=== PATIENT | female | born 1980 | race Caucasian/White ===

== ENCOUNTER 2016-06-10 09:07 | Emergency (ER) | payer BC ==
[2016-06-10 09:28] VITALS: BP 106/76
--- NOTE | 2016-06-10 09:33 | UC ---
Throat Pain/Nasal Miquel HPI - HPI Summary HPI Summary: SINUS PAIN AND PRESSURE X 3 DAYS + NASAL CONGESTION, PND X 7 DAYS - History of Current Complaint Chief Complaint: UCRespiratory Stated Complaint: SINUS COMPLAINT Time Seen by Provider: 06/10/16 09:18 Hx Obtained From: Patient Hx Last Menstrual Period: 05/31/16 Onset/Duration: Gradual Onset, Lasting Days - 3, Still Present Severity: Moderate Cough: Nonproductive Associated Signs & Symptoms: Positive: Sinus Discomfort, Nasal Discharge. Negative: Dysphagia, Drooling, Fever, Rash - Allergies/Home Medications Allergies/Adverse Reactions: Allergies Allergy/AdvReac Type Severity Reaction Status Date / Time Gluten Meal Allergy Intermediate GI UPSET. Verified 06/10/16 09:12 FLU SYMPTOMS ? Latex Allergy yeast Uncoded 12/23/15 08:30 infection, itching seasonal allergy Allergy Eyes Uncoded 12/23/15 08:30 Itchy/Swollen/Red/Watery Home Medications: Home Medications Doxylamine-Dm [Nite Time Cough] 1 liq PO BEDTIME PRN 06/10/16 [History Confirmed 06/10/16] PMH/Surg Hx/FS Hx/Imm Hx Endocrine History Of: Denies: Diabetes Cardiovascular History Of: Reports: Cardiac Disorders - mitrovalve prolapse with regurgitation Denies: Hypertension, Pacemaker/ICD GI/ History Of: Denies: Renal Disease - Surgical History Surgical History: Yes Surgery Procedure, Year, and Place: wisdom teeth extraction with cyst removal. bunionectomy right foot. vein stripping bilat. TONSIILECTOMY - Family History Known Family History: Positive: Cardiac Disease - Social History Alcohol Use: None Substance Use Type: None Smoking Status (MU): Never Smoked Tobacco Have You Smoked in the Last Year: No - Immunization History Most Recent Influenza Vaccination: NOT IN Review of Systems Constitutional: Negative Skin: Negative Eyes: Negative ENT: Sore Throat, Nasal Discharge Respiratory: Cough Cardiovascular: Negative Gastrointestinal: Negative Genitourinary: Negative All Other Systems Reviewed And Are Negative: Yes Physical Exam Triage Information Reviewed: Yes Appearance: Well-Appearing, No Pain Distress, Well-Nourished Vital Signs: Initial Vital Signs Temp 98.9 F 06/10/16 09:14 Pulse 94 06/10/16 09:14 Resp 24 06/10/16 09:14 BP 106/76 06/10/16 09:14 Pulse Ox 98 06/10/16 09:14 Vital Signs Reviewed: Yes Eye Exam: Normal Eyes: Positive: Conjunctiva Clear ENT: Positive: Normal ENT inspection, Hearing grossly normal, Pharynx normal, Nasal congestion, Nasal drainage, TMs normal Neck exam: Normal Neck: Positive: Supple, Nontender, No Lymphadenopathy Respiratory Exam: Normal Respiratory: Positive: Chest non-tender, Lungs clear, Normal breath sounds Cardiovascular: Positive: RRR, No Murmur, Pulses Normal Neurological: Positive: Alert Skin Exam: Normal Throat Pain/Nasal Course/Dx - Differential Dx/Diagnosis Provider Diagnoses: SINUSITIS Discharge - Discharge Plan Condition: Stable Disposition: HOME Prescriptions: Amoxicillin/Clavulanate TAB* [Augmentin TAB 875*] 875 mg PO BID #20 tab Mometasone NASAL (NF) [Nasonex (NF)] 1 spray BOTH NARES DAILY #1 nasal.spr Patient Education Materials: Sinusitis (ED) Referrals: Angela Mclaughlin MD [Primary Care Provider] - If Needed
== END 2016-06-10 09:45 | disposition home or self-care (01) ==
LOC: UCCORT 09:07
DX: J32.9 Chronic sinusitis, unspecified (principal)
CPT/HCPCS: 99212; G0463

== ENCOUNTER 2017-10-26 17:24 | Emergency (ER) | payer BC ==
[2017-10-26 19:12] VITALS: BP 117/65
--- NOTE | 2017-10-26 19:40 | UC ---
Neck Pain HPI - HPI Summary HPI Summary: Pt c/o sudden onset neck and upper back pain and stiffness that began after stretching upon waking in the morning yesterday morning. - History of Current Complaint Chief Complaint: UCUpperExtremity Stated Complaint: BACK AND NECK PAIN Time Seen by Provider: 10/26/17 19:32 Hx Obtained From: Patient Hx Last Menstrual Period: 10/14/17 ?: No Onset/Duration Of Injury/Symptoms: Hours Mechanism Of Injury: No Known Trauma Timing: Constant Onset/Duration: Sudden Onset, Still Present Severity: Moderate Pain Intensity: 2 Character: Dull, Aching, Stiff Aggravating Factors: Position, Movement Alleviating Factors: Nothing Associated Signs & Symptoms: Positive: Negative - Risk Factors Meningitis Risk Factors: Negative - Allergies/Home Medications Allergies/Adverse Reactions: Allergies Allergy/AdvReac Type Severity Reaction Status Date / Time gluten Allergy GI Upset Verified 10/26/17 19:00 tomato Allergy Rash Verified 10/26/17 19:00 ? Latex Allergy yeast Uncoded 10/26/17 19:00 infection, itching dairy Allergy GI Upset Uncoded 10/26/17 19:00 seasonal allergy Allergy Eyes Uncoded 10/26/17 19:00 Itchy/Swollen/Red/Watery Home Medications: Home Medications Berberine 1 udc PO BID 10/26/17 [History] Black Mongolian Radish 1 tab PO BID 10/26/17 [History] Digest Ds 1 tab PO SEE INSTRUCTIONS 10/26/17 [History] Parotid 1 tab PO BID 10/26/17 [History] PMH/Surg Hx/FS Hx/Imm Hx Previously Healthy: Yes - Surgical History Surgical History: Yes Surgery Procedure, Year, and Place: wisdom teeth extraction with cyst removal. bunionectomy right foot. vein stripping bilat. TONSILECTOMY - Family History Known Family History: Positive: Cardiac Disease - Social History Occupation: Employed Full-time Lives: With Family Alcohol Use: None Substance Use Type: None Smoking Status (MU): Never Smoked Tobacco Have You Smoked in the Last Year: No - Immunization History Most Recent Influenza Vaccination: NOT IN Review Of Systems Constitutional: Positive: Negative Skin: Positive: Negative Eyes: Positive: Negative ENT: Positive: Negative Respiratory: Positive: Negative Cardiovascular: Positive: Negative Gastrointestinal: Positive: Negative Genitourinary: Positive: Negative Musculoskeletal: Positive: Decreased ROM - neck, Myalgia - neck and upper back that radiates to left upper arm Neurological: Positive: Negative Psychological: Positive: Negative All Other Systems Reviewed And Are Negative: Yes Physical Exam Triage Information Reviewed: Yes Appearance: Pain Distress Vital Signs: Initial Vital Signs Temp 98.3 F 10/26/17 19:05 Pulse 69 10/26/17 19:05 Resp 18 10/26/17 19:05 BP 117/65 10/26/17 19:05 Pulse Ox 98 10/26/17 19:05 Vital Signs Reviewed: Yes Eye Exam: Normal ENT Exam: Normal Dental Exam: Normal Neck exam: Normal Neck: Positive: Supple, Other: - c/o pain with rom Respiratory Exam: Normal Cardiovascular Exam: Normal Musculoskeletal Exam: Other Musculoskeletal: Positive: Strength Intact, ROM Intact, Other: - c/o Neurological Exam: Normal Psychological Exam: Normal Skin Exam: Normal Neck Pain Course/Dx - Differential Dx/Diagnosis Differential Dx/HQI/PQRI: Sprain, Strain, Torticollis Provider Diagnoses: muscle spasm. trigger point tenderness Discharge - Sign-Out/Discharge Documenting (check all that apply): Patient Departure - Discharge Plan Condition: Stable Disposition: HOME Prescriptions: Cyclobenzaprine TAB* [Flexeril 10 MG TAB*] 10 mg PO TID PRN #15 tab PRN Reason: Pain Patient Education Materials: Muscle Spasm (ED), Neck Pain (ED) Referrals: Angela Mclaughlin MD [Primary Care Provider] - If Needed - Billing Disposition and Condition Condition: STABLE Disposition: Home Addendum entered and electronically signed by Stefan SHELTON,Carmen Rao NP 14:20:
== END 2017-10-26 19:50 | disposition home or self-care (01) ==
LOC: UCCORT 17:24
DX: M62.838 Other muscle spasm (principal); M54.6 Pain in thoracic spine; M54.2 Cervicalgia
CPT/HCPCS: 99212; G0463

== ENCOUNTER 2017-12-22 15:00 | Emergency (ER) | payer BC ==
[2017-12-22 16:13] VITALS: BP 105/67
--- NOTE | 2017-12-22 16:39 | UC ---
Throat Pain/Nasal Miquel HPI - HPI Summary HPI Summary: Pt presents with c/o nasal congestion, sinus pressure and pain X 7 days. Pt states that the sinus congestion and pain is worsening over the last 24 hours. - History of Current Complaint Chief Complaint: UCGeneralIllness Stated Complaint: SINUS CONCERN Time Seen by Provider: 12/22/17 16:26 Hx Obtained From: Patient Hx Last Menstrual Period: 12/09/17 ?: No Onset/Duration: Sudden Onset, Lasting Days, Still Present, Worse Since - onset Severity: Moderate Pain Intensity: 0 Cough: None Associated Signs & Symptoms: Positive: Sinus Discomfort - Epiglottits Risk Factors Epiglottis Risk Factors: Negative - Allergies/Home Medications Allergies/Adverse Reactions: Allergies Allergy/AdvReac Type Severity Reaction Status Date / Time gluten Allergy GI Upset Verified 12/22/17 16:13 tomato Allergy Rash Verified 12/22/17 16:13 ? Latex Allergy yeast Uncoded 12/22/17 16:13 infection, itching dairy Allergy GI Upset Uncoded 12/22/17 16:13 seasonal allergy Allergy Eyes Uncoded 12/22/17 16:13 Itchy/Swollen/Red/Watery PMH/Surg Hx/FS Hx/Imm Hx Previously Healthy: Yes Cardiovascular History: Other - mitral valve prolapse Other Cardiovascular History: mitral valve prolapse - Surgical History Surgical History: Yes Surgery Procedure, Year, and Place: wisdom teeth extraction with cyst removal. bunionectomy right foot. vein stripping bilat. TONSILECTOMY - Family History Known Family History: Positive: Cardiac Disease - Social History Occupation: Employed Full-time Lives: With Family Alcohol Use: None Substance Use Type: None Smoking Status (MU): Never Smoked Tobacco Have You Smoked in the Last Year: No - Immunization History Most Recent Influenza Vaccination: NOT IN Review of Systems Constitutional: Fatigue Skin: Negative Eyes: Negative ENT: Nasal Discharge, Sinus Congestion, Sinus Pain/Tenderness Respiratory: Negative Cardiovascular: Negative Gastrointestinal: Negative Genitourinary: Negative Motor: Negative Neurovascular: Negative Musculoskeletal: Negative Neurological: Headache Psychological: Negative Is Patient Immunocompromised?: No All Other Systems Reviewed And Are Negative: Yes Physical Exam Triage Information Reviewed: Yes Appearance: Ill-Appearing Vital Signs: Initial Vital Signs Temp 97.7 F 12/22/17 16:08 Pulse 74 12/22/17 16:08 Resp 18 12/22/17 16:08 BP 105/67 12/22/17 16:08 Pulse Ox 99 12/22/17 16:08 Vital Signs Reviewed: Yes Eye Exam: Normal ENT Exam: Other ENT: Positive: Nasal congestion, Sinus tenderness Dental Exam: Normal Neck exam: Normal Respiratory Exam: Normal Cardiovascular Exam: Normal Musculoskeletal Exam: Normal Neurological Exam: Normal Psychological Exam: Normal Skin Exam: Normal Throat Pain/Nasal Course/Dx - Differential Dx/Diagnosis Differential Diagnosis/HQI/PQRI: Influenza, Sinusitis, URI Provider Diagnoses: sinusitis Discharge - Sign-Out/Discharge Documenting (check all that apply): Patient Departure All imaging exams completed and their final reports reviewed: No Studies - Discharge Plan Condition: Stable Disposition: HOME Prescriptions: Amoxicillin PO (*) [Amoxicillin 875 MG (*)] 875 mg PO Q12H #20 tab Patient Education Materials: Sinusitis (ED) Referrals: Angela Mclaughlin MD [Primary Care Provider] - If Needed - Billing Disposition and Condition Condition: STABLE Disposition: Home
== END 2017-12-22 16:50 | disposition home or self-care (01) ==
LOC: UCCORT 15:00
DX: J32.9 Chronic sinusitis, unspecified (principal)
CPT/HCPCS: 99212; G0463

== ENCOUNTER 2019-01-05 11:01 | Emergency (ER) | payer BC ==
--- OUTSIDE RECORDS SUMMARY | 2019-01-05 11:58 | XMS REPORT | Continuity of Care Document ---
:1980 External Reference #:[id number] Author Name Seema Jung PA-C Address [address] [place] [address] Care Team Providers Name Role Phone Alcides Cantu FNP Care Team Information [employer] [phone] Problems Active Problems Provider Date Depressive disorder Shanelle Mobley MD Onset: 09/22/2010 Celiac disease Fili Sevilla MD Onset: 01/06/2014 Cyst and pseudocyst of pancreas Fili Sevilla MD Onset: 01/06/2014 Cyst of pancreas Fili Sevilla MD Onset: 04/06/2015 Mucus in stool Seema Jung PA-C Onset: 10/08/2018 Flatulence, eructation and gas pain Seema Jung PA-C Onset: 2018 Abdominal pain Seema Jung PA-C Onset: 10/08/2018 Digestive symptom Seema Jung PA-C Onset: 10/08/2018 Epigastric pain Fili Sevilla MD Onset: 07/04/2017 Social History Type Date Description Comments Sex Unknown Tobacco Use Start: Unknown Patient has never smoked Smoking Status Reviewed: 11/11/18 Patient has never smoked Allergies, Adverse Reactions, Alerts Active Allergies Reaction Severity Comments Date Latex 04/01/2012 Medications Active Medications SIG Qnty Indications Ordering Provider Date Progesterone Take One Capsule Unknown Micronized By Mouth AT 200mg Capsules Bedtime Days 14 28 Magnesium Unknown 500mg Capsules Vitamin C Unknown Immunizations CPT Code Status Date Vaccine Lot # [id number] Given 01/05/2010 Influenza Virus [place], [place] [id number] Given 03/29/2006 Influenza Virus Vaccine, Split Virus, Im Vital Signs Date Vital Result Comment 11/11/2018 9:44am Height 66 inches 5'6" BP Systolic 110 mmHg BP Diastolic 71 mmHg Heart Rate 74 /min 10/08/2018 9:06am Height 66 inches 5'6" Weight 142.00 lb BMI (Body Mass Index) 22.9 kg/m2 Results Description No Information Available Procedures Description No Information Available Medical Devices Description No Information Available Encounters Type Date Location Provider Dx Diagnosis Office Visit 10/08/2018 Gastroenterology Seema BynumNisha R19.4 Change in bowel 9:[facility]a [facility] PA-[facility] habit R10.30 Lower abdominal pain, unspecified R14.0 Abdominal distension (gaseous) R19.5 Other fecal abnormalities Assessments Date Code Description Provider 11/11/2018 R19.4 Change in bowel habit Seema MisaNisha Jung PA-C 11/11/2018 R14.0 Abdominal distension (gaseous) Seema Jung PA-C 11/11/2018 R19.5 Other fecal abnormalities Seema Jung PA-C 10/08/2018 R19.4 Change in bowel habit Seema MisaNisha Jung PA-C 10/08/2018 R10.30 Lower abdominal pain, unspecified Seema Jung PA -C 10/08/2018 R14.0 Abdominal distension (gaseous) Seema Jung PA-C 10/08/2018 R19.5 Other fecal abnormalities Seema Jung PA-C Plan of Treatment No Information Available Functional Status Description No Information Available Mental Status Description No Information Available Referrals Description No Information Available
--- OUTSIDE RECORDS SUMMARY | 2019-01-05 11:58 | XMS REPORT | Continuity of Care Document ---
:1980 External Reference #:[id number] Author Name FARA Elizabeth (transmitted by agent of provider Carmen García) Address [address] [facility], [place] [address] Care Team Providers Name Role Phone Angela Mclaughlin MD - Internal Care Team Information [facility] Jacey Mccoy MD - Cardiovascular Care Team Information [facility] Disease Annamarie Szymanski MD - Obstetrics & Care Team Information [facility]ne[facility] Problems Active Problems Provider Date Mitral valve regurgitation Angela Mclaughlin M.D. Onset: 12/03/2017 Depressive disorder Shanelle Mobley M.D., FACP Onset: 09/22/2010 Knee pain Jessica Sebastian M.D. Onset: 07/11/2017 Vitamin B12 deficiency (non anaemic) Angela Mclaughlin M.D. Onset: 07/02/2018 Social History Type Date Description Comments Sex Unknown Tobacco Use Start: Unknown Never Smoked Cigarettes Smoking Status Reviewed: 11/18/18 Never Smoked Cigarettes ETOH Use Denies alcohol use Tobacco Use Start: Unknown Patient has never smoked Recreational Drug Use Never Used Drugs Exercise Type/Frequency Does not exercise Allergies, Adverse Reactions, Alerts Active Allergies Reaction Severity Comments Date Latex 04/01/2012 Tomatoes Urticaria 09/17/2017 [place] 09/17/2017 Soy 09/17/2017 Gluten 09/17/2017 Dairy 09/17/2017 [place] Vegtables Potatoes, eggplant, mushrooms, 11/15/2017 peppers Inactive Allergies No Known Drug Allergy 01/04/2010 Medications Active Medications SIG Qnty Indications Ordering Provider Date Vitamin B-12 1 by mouth every 30tabs Angela Mclaughlin, 11/05/2018 1000mcg day M.D. Tablets Progesterone take one capsule 15caps N94.6 Vanessa Hernandez, 09/26/2018 Micronized at bedtime days PA 200mg 14-28 Capsules Vitamin C take one tablet 60tabs D50.9 Sylvia Wong MD 06/11/2018 500mg Tablets by mouth twice a day, with iron Ibuprofen as needed Unknown 200mg Tablets Apple Cider Vinegar 1 tsp three Unknown times daily Tylenol Extra 1-2 tabs by Unknown Strength mouth every 6 500mg Tablets hours as needed Magnesium Gluconate 1 by mouth every Unknown day 500mg Tablets History Medications Cyanocobalamin 1 s/l qd 30tabs D51.9 Angela 11/05/2018 - 2500mcg Liz Mclaughlin 11/05/2018 Tablets Sub Cyanocobalamin one intramuscular D51.9 Sylvia Wong MD 06/11/2018 - weekly x 4, then 11/05/2018 1000mcg/ML Solution monthly x 3 Iron (Ferrous 1 by mouth 2 times a 60tabs D50.9 Sylvia Wong MD 2018 - Sulfate) day, with food 11/04/2018 142(45Fe) mg Tablets ER Medications Administered in Office Medication SIG Qnty Indications Ordering Provider Date B-12 Injection Nurse Visit A 10/02/2018 Injection B-12 Injection Nurse Visit A 09/02/2018 Injection B-12 Injection Nurse Visit A 07/29/2018 Injection B-12 Injection Angela Mclaughlin M.D. 07/02/2018 Injection B-12 Injection Nurse Visit A 06/26/2018 Injection B-12 Injection Nurse Visit A 06/19/2018 Injection B-12 Injection Sylvia Wong MD 06/11/2018 Injection PPD Shanelle Mobley M.D., FACP 06/29/2006 Injection PPD Shanelle Mobley M.D., FACP 06/29/2006 Injection Immunizations CPT Code Status Date Vaccine Lot # [id number] Given 01/05/2010 Influenza Virus 3Yrs & Over [id number] Given 03/29/2006 Influenza Virus 3Yrs & Over Vital Signs Date Vital Result Comment 11/18/2018 2:42pm Height 66 inches 5'6" Weight 144.00 lb Heart Rate 78 /min BP Systolic 110 mmHg BP Diastolic 68 mmHg Body Temperature 97.5 F O2 % BldC Oximetry 96 % BMI (Body Mass Index) 23.2 kg/m2 11/14/2018 10:07am Height 66 inches 5'6" Weight 133.00 lb Heart Rate 66 /min BP Systolic 101 mmHg BP Diastolic 64 mmHg O2 % BldC Oximetry 96 % BMI (Body Mass Index) 21.5 kg/m2 Results Test Date Facility Test Result H/L Range Note Laboratory test 11/01/2018 [facility] Vitamin B12 376 pg/mL Normal 180-914 [address] [place] [address] [phone] Ferritin 39.6 ng/mL Normal 11-307 Scleroderma AB 11/01/2018 [facility] Scleroderma Ab <0.2 U 2 (SCL70) [address] [place] [address] [phone] Vitamin B6 11/01/2018 [facility] Pyridoxal 8 g/L 5-[address] 5-[place] [address] [phone] Pyridoxic Acid 4 g/L 3-30 4 Laboratory test 11/01/2018 [facility] Parietal Cell AB <10.0 U [address] [place] [address] [phone] Vitamin B1 (Whole Blood) 95 nmol/L 70-180 6 Celiac Hla 11/01/2018 [facility] Hla-[id number] SEE BELOW [address] [place] [address] [phone] [id number] SEE BELOW 8 Celiac Gene Pairs Present? No Celiac Gene Interpretation See Comment 9 Immunoglobulins 11/01/2018 [facility] Immunoglobulin G 844 767 - 10 Serum Quant [address] mg/dL [address] [place] [address] [phone] Immunoglobulin M 145 mg/dL 37 - 286 Immunoglobulin A 85 mg/dL 61 - 356 Laboratory test 11/01/2018 [facility] Vitamin D 32.6 ng/mL Normal 20-50 [address] Total 25(Oh) [place] [address] [phone] Ascorbic Acid (Vitamin C) 1.3 mg/dL 0.4 - 2.0 12 Neutrophil Cytoplasmic 11/01/2018 [facility] C-Anca Negative Negative AB [address] [place] [address] [phone] P-Anca Negative Negative 13 Laboratory test 11/01/2018 [facility] Methylmalonic 0.09 <= 0.40 [address] Acid Mma nmol/[place] [address] [phone] RBC Folic Acid See Comment 15 Centromere Auto Abs <0.2 U 16 Laboratory 10/08/2018 [facility] TSH (Thyroid 1.32 Normal 0.34 -5.60 test finding [address] Stim Horm) mcIU/[place] [address] [phone] Free T4 (Free Thyroxine) 1.00 ng/dL Normal 0.61-1.12 T3 Free 3.70 pg/mL Normal 2.5-3.9 T3 Reverse 19 ng/dL 10-24 17 Thyroperoxidase AB 0.42 IU/mL Normal <9 Thyroglobulin AB 0.1 IU/mL <4.0 CBC Auto 10/08/2018 [facility] White Blood 7.2 10^3/uL Normal 3.5-10.[address] [place] [address] [phone] Red Blood Count 4.63 10^6/uL Normal 3.70-4.87 Hemoglobin 14.2 g/dL Normal 12.0-16.0 Hematocrit 42 % Normal 35-47 Mean Corpuscular Volume 90 fL Normal 80-97 Mean Corpuscular Hemoglobin 31 pg Normal 27-31 Mean Corpuscular HGB Conc 34 g/dL Normal 31-36 Red Cell Distribution Width 13 % Normal 10-15 Platelet Count 298 10^3/uL Normal 150-450 Mean Platelet Volume 8.6 fL Normal 7.4-10.4 Abs Neutrophils 5.0 10^3/uL Normal 1.5-7.7 Abs Lymphocytes 1.8 10^3/uL Normal 1.0-4.8 Abs Monocytes 0.3 10^3/uL Normal 0-0.8 Abs Eosinophils 0.0 10^3/uL Normal 0-0.6 Abs Basophils 0.0 10^3/uL Normal 0-0.2 Abs Nucleated RBC 0.0 10^3/uL Granulocyte % 70.0 % Lymphocyte % 25.1 % Monocyte % 4.4 % Eosinophil % 0.2 % Basophil % 0.3 % Nucleated Red Blood Cells % 0.0 Laboratory test 10/08/2018 [facility] Vitamin B12 567 pg/mL Normal 180-914 18 finding [address] [place] [address] [phone] Iron (Fe) 154 g/dL Normal 50-212 Ferritin 33.6 ng/mL Normal 11-307 C Reactive Protein < 1.00 mg/L Normal <8.01 Zinc Serum 0.86 g/mL 0.66-1.10 19 Celiac Panel 10/08/2018 [facility] Tissue Transglutaminase <1.2 U/mL 20 [facility] [place] [place] [address] [phone] Immunoglobulin A 92 mg/dL 61 - 356 Celiac Interpretation See Comment 21 Arthritis Panel 2018 [facility] Uric Acid 5.6 mg/dL Normal 2.3-6.[address] [place] [address] [phone] Rheumatoid Factor < 10 IU/mL Normal <15 Anti-Nuclear Antibody 0.2 U 22 Cyclic Citrullinated Peptide <15.6 U 23 Interpretation See Comment 24 Laboratory test 2018 [facility] Vitamin B12 194 pg/mL Normal 180-914 25 finding [address] [place] [address] [phone] TSH (Thyroid Stim Horm) 0.97 mcIU/mL Normal 0.34-5.60 Erythrocyte Sed Rate 8 mm/Hr Normal 0-20 26 Anti Nuclear Antibody 0.2 U 27 Ferritin 16.8 ng/mL Normal 11-307 Laboratory test 2018 [facility] Influenza A/B Negative A & B 28 finding Rapid 1 Normal Range 180 to 914 Indeterminate Range 145 to 180 Deficient Range <145 2 REFERENCE VALUE <1.0 (Negative) Test Performed by: [facility] [address] [place] [address] 3 ADDITIONAL INFORMATION This test was developed and its performance characteristics determined by [facility] in a manner consistent with CLIA requirements. This test has not been cleared or approved by the U.S. Food and Drug Administration. 4 ADDITIONAL INFORMATION This test was developed and its performance characteristics determined by [facility] in a manner consistent with CLIA requirements. This test has not been cleared or approved by the U.S. Food and Drug Administration. Test Performed by: [email or web address] [address] [place] [address] 5 REFERENCE VALUE <=20.0 (Negative) Test Performed by: [email or web address] - [address] [address] 6 ADDITIONAL INFORMATION This test was developed and its performance characteristics determined by [facility] in a manner consistent with CLIA requirements. This test has not been cleared or approved by the U.S. Food and Drug Administration. Test Performed by: [email or web address] - [facility] [address] [place] [address] 7 RESULT: 01:02,03 REFERENCE VALUE Not Applicable 8 RESULT: 03:01,06:02 DQ Serologic Equivalent: 7,6 REFERENCE VALUE Not Applicable 9 The absence of HLA celiac permissive genes would make the presence of celiac disease unlikely. ADDITIONAL INFORMATION Method: Molecular typing of HLA antigens performed using reverse SSOP and/or SSP methods, reported as serological equivalents and low to medium resolution molecular values. Performing Laboratory CLIA# [id number] Test Performed by: [facility] - [address] [address] Test Performed by: [facility] [place] [address] 11 Total 25-Hydroxyvitamin D2 and D3 (25-OH-VitD) <10 ng/mL (severe deficiency) 10-19 ng/mL (mild to moderate deficiency) 20-50 ng/mL (optimum levels) 51-80 ng/mL (increased risk of hypercalciuria) >80 ng/mL (toxicity possible) 12 ADDITIONAL INFORMATION This test was developed and its performance characteristics determined by [facility] in a manner consistent with CLIA requirements. This test has not been cleared or approved by the U.S. Food and Drug Administration. Test Performed by: [facility] [place] [address] 13 Negative for cANCA and pANCA patterns by immunofluorescence. ADDITIONAL INFORMATION This test was developed and its performance characteristics determined by [facility] in a manner consistent with CLIA requirements. This test has not been cleared or approved by the U.S. Food and Drug Administration. Test Performed by: [facility] [place] [address] 14 ADDITIONAL INFORMATION This test was developed and its performance characteristics determined by [facility] in a manner consistent with CLIA requirements. This test has not been cleared or approved by the U.S. Food and Drug Administration. Test Performed by: [facility] - [place] [id number] 15 Test Result Flag Units Reference Folate, RBC Folate, Hemolysate 469.3 ng/mL Not Estab. Hematocrit 42.1 % 34.0-46.6 Folate, RBC 1115 ng/mL >498 Test Reported Date/Time: 11/06/2018 0906 ET Performed at [address] [address] Dir: Thelma Ugarte MD 16 REFERENCE VALUE <1.0 (Negative) Test Performed by: [address] [address] 17 ADDITIONAL INFORMATION This test was developed and its performance characteristics determined by [facility] in a manner consistent with CLIA requirements. This test has not been cleared or approved by the U.S. Food and Drug Administration. Test Performed by: [address] [address] 18 Normal Range 180 to 914 Indeterminate Range 145 to 180 Deficient Range <145 19 ADDITIONAL INFORMATION This test was developed and its performance characteristics determined by [facility] in a manner consistent with CLIA requirements. This test has not been cleared or approved by the U.S. Food and Drug Administration. Test Performed by: [facility] - [address] [address] 20 REFERENCE VALUE <4.0 (Negative) Test Performed by: [facility] - [address] [address] 21 Negative serology. Celiac disease unlikely. However, approximately 10% of patients with celiac disease are seronegative. Also, patients who are already adhering to a gluten-free diet may be seronegative. If celiac disease is highly clinically suspected, consider HLA-DQ typing. Test Performed by: [facility] - [address] [address] 22 REFERENCE VALUE <=1.0 (Negative) 23 REFERENCE VALUE <20.0 (Negative) 24 Tests for antibodies to dsDNA and MIKY antigens are not performed automatically unless the FRANCISCO result is > or = 3.0 U. Studies performed at [facility] indicate that positive FRANCISCO results <3.0 U are rarely accompanied by positive second order tests. Test Performed by: [facility] - [address] [address] 25 Normal Range 180 to 914 Indeterminate Range 145 to 180 Deficient Range <145 26 Test Performed by: [facility] [address] [place] [address] Erick Fuller M.D. Director of Laboratory 27 REFERENCE VALUE <=1.0 (Negative) Test Performed by: [facility] - [address] [address] 28 Negative for Influenza A & B Procedures Date Code Description Status 10/02/2018 49347 Admin Of Inj Completed 09/02/2018 91684 Admin Of Inj Completed 07/29/2018 16287 Admin Of Inj Completed 07/02/2018 50083 Admin Of Inj Completed 06/26/2018 62684 Admin Of Inj Completed 06/19/2018 51159 Admin Of Inj Completed 06/11/2018 72044 Admin Of Inj Completed 05/25/2006 72099776 Colonoscopy Completed Medical Devices Description No Information Available Encounters Type Date Location Provider Dx Diagnosis Office Visit 11/14/2018 [facility] Internal Angela Mclaughlin, K59.00 Constipation , 10:00a Medicine Jess Meehan M.D. unspecified E53.8 Deficiency of other specified B group vitamins Office Visit 10/25/2018 12:00p Rheumatology Jovan L94.0 [facility] Liz Singleton scleroderma [morphea] E53.8 Deficiency of other specified B group vitamins K58.2 Mixed irritable bowel syndrome R53.83 Other fatigue Office Visit 09/26/2018 1:00p Womens Vanessa Hernandez, N94.6 Dysmenorrhea, [facility] unspecified [facility] K58.2 Mixed irritable bowel syndrome R53.83 Other fatigue N92.5 Other specified irregular menstruation Office Visit 07/02/2018 9:20a [facility] Internal Angela Z00.00 Encntr for Carmelo Mclaughlin M.D. 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 E61.1 Iron deficiency E53.8 Deficiency of other specified B group vitamins Office Visit 06/11/2018 9:00a [facility] Internal Sylvia Wong MD E53.8 Deficiency of Medicine - Suite other specified B R group vitamins E61.1 Iron deficiency Office Visit 2018 2:00p [facility] Internal Sylvia Wong MD R53.83 Other fatigue Medicine - Suite R M25.511 Pain in right shoulder M25.512 Pain in left shoulder M25.531 Pain in right wrist M25.532 Pain in left wrist M25.562 Pain in left knee M25.561 Pain in right knee Assessments Date Code Description Provider 11/18/2018 N94.6 Dysmenorrhea, unspecified FARA Elizabeth 11/18/2018 R53.83 Other fatigue FARA Elizabeth 11/18/2018 K58.2 Mixed irritable bowel syndrome FARA Elizabeth 11/14/2018 K59.00 Constipation, unspecified Angela Mclaughlin M.D. 11/14/2018 E53.8 Deficiency of other specified B group Angela Cotton, M.D. vitamins 10/25/2018 L94.0 Localized scleroderma [morphea] Jovan Singleton M.D. 10/25/2018 E53.8 Deficiency of other specified B group Jovan Singleton M.D. vitamins 10/25/2018 K58.2 Mixed irritable bowel syndrome Jovan Singleton M.D. 10/25/2018 R53.83 Other fatigue Jovan Singleton M.D. 10/02/2018 E53.8 Deficiency of other specified B group Nurse Visit A vitamins 09/26/2018 N94.6 Dysmenorrhea, unspecified Vanessa Hernandez, PA 09/26/2018 K58.2 Mixed irritable bowel syndrome FARA Elizabeth 09/26/2018 R53.83 Other fatigue FARA Elizabeth 09/26/2018 N92.5 Other specified irregular menstruation FARA Elizabeth 09/02/2018 E53.8 Deficiency of other specified B group Nurse Visit A vitamins 07/29/2018 E53.8 Deficiency of other specified B group Nurse Visit A vitamins 07/02/2018 Z00.00 Encounter for general adult medical Angela Mclaughlin M.D. examination without abno 07/02/2018 Z12.4 Encounter for screening for malignant Angela Mclaughlin M.D. 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 07/02/2018 E61.1 Iron deficiency Angela Mclaughlin M.D. 07/02/2018 E53.8 Deficiency of other specified B group Angela Mclaughlin M.D. vitamins 06/26/2018 E53.8 Deficiency of other specified B group Nurse Visit A vitamins 06/19/2018 D51.9 Vitamin B12 deficiency anemia, unspecified Nurse Visit A 06/11/2018 E53.8 Deficiency of other specified B group Sylvia Wong MD vitamins 06/11/2018 E61.1 Iron deficiency Sylvia Wong MD 2018 R53.83 Other fatigue Sylvia Wong MD 2018 M25.511 Pain in right shoulder Sylvia Wong MD 2018 M25.512 Pain in left shoulder Sylvia Wong MD 2018 M25.531 Pain in right wrist Sylvia Wong MD 2018 M25.532 Pain in left wrist Sylvia Wong MD 2018 M25.562 Pain in left knee Sylvia Wong MD 2018 M25.561 Pain in right knee Sylvia Wong MD Plan of Treatment Future Appointment(s):02/14/2019 9:30 am - Annamarie Szymanski MD at [facility]01/20/2019 10:00 am - FARA Elizabeth at [facility]07/10/2019 9:20 am - [facility]aughlin [facility] am - Jovan Singleton M.D. at [facility]11/18/2018 - SAVANNAH Elizabeth94.6 Dysmenorrhea, unspecifiedFollow up:2 monthsRecommendations:get crampbark tincture to use for menstrual cramps, use before ibuprofen. also work on [place] 3's , start at 1000mg daily and work up to 4000mg, can split 2000mg twice a day. this can help the cramps over time. you will see Dr. Szymanski the question of endometriosis is on the nsymiB27.83 Other fsnhuclI54.2 Mixed irritable bowel syndromeRecommendations:you will schedule your endoscopy and colonoscopy keep getting dense nutrition in ! bone broth, veggies etc. you are working carefully on fiber we are considering small intestinal fungal overgrowth also please CC me on the reports Functional Status Description No Information Available Mental Status Description No Information Available Referrals Refer to Dr Reason for Referral Status Appt Date Annamarie Szymanski MD Sent 11/07/2018 [address], [place] [address] [phone] Jovan Singleton MD pt with severe fatigue and myalgias, concerned Sent 08/09 with auto immune disease since she was diagnosed with scleroderma at age 21 [address] [place] [address] [place] [address] [phone]
[2019-01-05 12:15] VITALS: BP 104/63
--- NOTE | 2019-01-05 12:41 | UC ---
Throat Pain/Nasal Miquel HPI - HPI Summary HPI Summary: Sore throat, fever for 2 days, now a rash on chest and abdomen. Pt also had a non-productive cough with back pain on Sunday. - History of Current Complaint Chief Complaint: UCRespiratory Stated Complaint: THROAT,CONGESTION,SKIN COMPLAINT Time Seen by Provider: 01/05/19 12:08 Hx Obtained From: Patient Hx Last Menstrual Period: 12/11/18 ?: No Onset/Duration: Gradual Onset Severity: Mild Pain Intensity: 5 Cough: Nonproductive Associated Signs & Symptoms: Positive: Nasal Discharge, Fever, Rash - Allergies/Home Medications Allergies/Adverse Reactions: Allergies Allergy/AdvReac Type Severity Reaction Status Date / Time gluten Allergy GI Upset Verified 01/05/19 12:03 tomato Allergy Rash Verified 01/05/19 12:03 ? Latex Allergy yeast Uncoded 01/05/19 12:03 infection, itching dairy Allergy GI Upset Uncoded 01/05/19 12:03 seasonal allergy Allergy Eyes Uncoded 01/05/19 12:03 Itchy/Swollen/Red/Watery Home Medications: Home Medications Acetaminophen/Chlorpheniramine [Coricidin Hbp Cold & Flu 2-325 mg] 2 tab PO BEDTIME PRN 01/05/19 [History Confirmed 01/05/19] Ascorbic Acid TAB* [Vitamin C TAB*] 1,000 mg PO DAILY 01/05/19 [History Confirmed 01/05/19] Cyanocobalamin (Vitamin B-12) [B-12] 1,000 mcg PO DAILY 01/05/19 [History Confirmed 01/05/19] Ibuprofen TAB* [Advil TAB*] 400 - 600 mg PO Q6H PRN 01/05/19 [History Confirmed 01/05/19] Magnesium [Magnesium Elemental] 30 mg PO DAILY 01/05/19 [History Confirmed 01/05] Seymour-3 Fatty Acids/Fish Oil [Seymour 3] 1 cap PO BID 01/05/19 [History Confirmed 01/05/19] Progesterone CAP (NF) [Prometrium (NF)] 100 mg PO SEE INSTRUCTIONS 01/05/19 [ History Confirmed 01/05/19] guaiFENesin ER TAB [Mucinex*] 1,200 mg PO BID PRN 01/05/19 [History Confirmed ] PMH/Surg Hx/FS Hx/Imm Hx Previously Healthy: Yes Other Cardiovascular History: MVP - Surgical History Surgical History: Yes Surgery Procedure, Year, and Place: wisdom teeth extraction with cyst removal. bunionectomy right foot. vein stripping bilat. TONSILECTOMY - Family History Known Family History: Positive: Cardiac Disease - Social History Alcohol Use: None Substance Use Type: None Smoking Status (MU): Never Smoked Tobacco Have You Smoked in the Last Year: No - Immunization History Most Recent Influenza Vaccination: NOT IN Review of Systems All Other Systems Reviewed And Are Negative: Yes Constitutional: Positive: Fever, Chills ENT: Positive: Sore Throat, Nasal Discharge Respiratory: Positive: Cough Musculoskeletal: Positive: Other: - Back pain with coughing on Sunday but that has resolved. Is Patient Immunocompromised?: No Physical Exam Triage Information Reviewed: Yes Appearance: Well-Appearing, No Pain Distress, Well-Nourished Vital Signs: Initial Vital Signs Temp 98.4 F 01/05/19 12:09 Pulse 74 01/05/19 12:09 Resp 17 01/05/19 12:09 BP 104/63 01/05/19 12:09 Pulse Ox 99 01/05/19 12:09 Vital Signs Reviewed: Yes Eyes: Positive: Conjunctiva Clear ENT: Positive: Pharynx normal, Nasal drainage - Clear nasal coryza, TMs normal, Uvula midline Neck: Positive: Supple, Nontender, No Lymphadenopathy Respiratory: Positive: Lungs clear, Normal breath sounds, No respiratory distress, No accessory muscle use Cardiovascular: Positive: RRR, No Murmur, Pulses Normal, Brisk Capillary Refill Abdomen Description: Positive: Nontender, No Organomegaly, Soft. Negative: CVA Tenderness (R), CVA Tenderness (L), Splenomegaly Bowel Sounds: Positive: Present Musculoskeletal Exam: Normal Neurological Exam: Normal Psychological Exam: Normal Skin: Positive: Rashes - Sandpaper type rash on chest and abdomen, not itchy. Throat Pain/Nasal Course/Dx - Course Course Of Treatment: CXR:FINDINGS: The heart is within normal limits in size. Mediastinal and hilar contours appear within normal limits. The lungs are clear. No pleural effusion is seen. IMPRESSION: NO EVIDENCE FOR ACTIVE CARDIOPULMONARY DISEASE. Rapid strep:negative Rapid flu:negative Although the strep test is negative, I am going to treat to cover strep. Pt has a fever, sore throat, and a sand-paper feeling and appearing rash. A throat culture will be sent as well. She is to increase fluids and follow up with her primary care provider if no improvement or if continued fever in 2-3 days. - Differential Dx/Diagnosis Provider Diagnosis: Tonsillitis Discharge ED - Sign-Out/Discharge Documenting (check all that apply): Patient Departure All imaging exams completed and their final reports reviewed: Yes - Discharge Plan Condition: Good Disposition: HOME Prescriptions: Penicillin VK TAB* [Penicillin VK 250 mg Tab*] 500 mg PO BID 10 Days #20 tab Patient Education Materials: Strep Throat (DC) Referrals: Angela Mclaughlin MD [Primary Care Provider] - Additional Instructions: Increase fluids, change your toothbrush in 24 hours, follow up with your doctor in 3-4 days if continued fever or if no improvement - Billing Disposition and Condition Condition: GOOD Disposition: Home - Attestation Statements Provider Attestation: I was available for consult. This patient was seen by the KAILASH. The patient was not presented to , seen by or examined by pr -Inés White MD
[2019-01-05 13:10] LABS: Influenza A Molecular NEGATIVE (Negative); Influenza B Molecular NEGATIVE (Negative)
== END 2019-01-05 13:23 | disposition home or self-care (01) ==
LOC: UCCORT 11:01
DX: J03.90 Acute tonsillitis, unspecified (principal); R21 Rash and other nonspecific skin eruption; R05 Cough; M54.9 Dorsalgia, unspecified; Z91.018 Allergy to other foods; Z91.011 Allergy to milk products; Z91.040 Latex allergy status; Z91.09 Other allergy status, other than to drugs and biological substances
CPT/HCPCS: 71046; 87070; 87651; 99212; G0463